=== PATIENT | female | born 1980 | race Hispanic/Latino ===

== ENCOUNTER 2017-12-31 19:22 | Emergency (ER) | payer OTHER ==
[2017-12-31] MEDS ORDERED: ONDANSETRON ODT 4 MG TAB ONE (19:44)
[2017-12-31] MEDS ORDERED: ACETAMINOPHEN 325 MG TAB ONE (19:44)
[2017-12-31 19:53] LABS: EOSINOPHILS % (AUTO) 0.5 % (0.0-8.0); HEMATOCRIT 40.6 % (36-48); LYMPHOCYTES % (AUTO) 15.3 % (21.0-51.0); MEAN CORPUSCULAR HEMOGLOBIN 27.5 pg (27.0-33.0); MEAN CORPUSCULAR HGB CONC 33.2 g/dL (32.0-36.0); MEAN CORPUSCULAR VOLUME 82.9 fL (79-99); MONOCYTES % (AUTO) 5.3 % (3.0-13.0); NEUTROPHILS % (AUTO) 77.9 % (40.0-77.0); PLATELET COUNT (AUTO) 89 K/uL (130-400); RED CELL DISTRIBUTION WIDTH 14.2 % (11.0-15.5); WHITE BLOOD COUNT (AUTO) 18.4 K/uL (4.8-10.8)
[2017-12-31 20:03] LABS: CREATININE 0.8 mg/dL (0.5-1.5); POTASSIUM 4.3 mmol/L (3.5-5.1)
[2017-12-31 20:07] LABS: ALBUMIN 3.5 g/dL (3.5-5.0); BILIRUBIN,TOTAL 0.6 mg/dL (0.2-1.0); TOTAL PROTEIN, SERUM 8.2 g/dL (6.0-8.3)
[2017-12-31 20:16] LABS: RAPID GROUP A STREP NEGATIVE (NEGATIVE)
[2017-12-31] MEDS ORDERED: METRONIDAZOLE 500 MG TABLET ONE (21:19)
[2017-12-31] MEDS ORDERED: LIDOCAINE HCL-MPF 1% 2ML VIAL ONE (21:19)
[2017-12-31] MEDS ORDERED: CEFTRIAXONE SODIUM 1 GM ONE (21:19)
== END 2017-12-31 22:25 | disposition home or self-care (01) ==
LOC: EDH 19:22
DX: K80.20 Calculus of gallbladder without cholecystitis without obstruction (principal); Z88.6 Allergy status to analgesic agent
CPT/HCPCS: 36415; 71045; 76700; 80053; 83690; 85025; 87804 ×2; 87880; 96372; 99285; J0696; J3490